=== PATIENT | female | born 1955 | race Caucasian/White ===

== ENCOUNTER 2017-08-23 12:38 | Emergency (ER) | payer OTHER ==
[2017-08-23 13:06] VITALS: BP 116/52
--- NOTE | 2017-08-23 13:19 | UC ---
Upper Extremity HPI - HPI Summary HPI Summary: Right atraumatic shoulder pain with swelling and lump over the AC joint area. It is making it hard to move her arm and shoulder. No prior fracture there. - History of Current Complaint Chief Complaint: UCUpperExtremity Stated Complaint: RIGHT SHOULDER PAIN Time Seen by Provider: 08/23/17 12:53 Hx Obtained From: Patient Onset/Duration: Lasting Days Severity Initially: Moderate Severity Currently: Moderate Pain Intensity: 1 Location Of Pain: Is Discrete @ Character: Sharp, Aching Aggravating Factor(s): Movement, Lifting, Flexion, Extension, Internal/External Rotation, Abduction Alleviating Factor(s): Rest Associated Signs And Symptoms: Positive: Swelling, Other - tenderness. - Allergies/Home Medications Allergies/Adverse Reactions: Allergies Allergy/AdvReac Type Severity Reaction Status Date / Time glipizide Allergy Pain Verified 08/23/17 13:10 metformin Allergy Difficulty Verified 08/23/17 13:10 Breathing ofloxacin Allergy Difficulty Verified 08/23/17 13:10 Breathing pioglitazone [From Actos] Allergy See Comment Verified 08/23/17 13:10 Cuohfcl-Qie-Gdj Reductase Allergy Joint Pain Verified 08/23/17 13:10 Inhibitor Sulfa (Sulfonamide Allergy GI Upset Verified 08/23/17 12:57 Antibiotics) Home Medications: Home Medications Acetaminophen [8Hr Arthritis Pain Relief] 650 mg PO Q8H 08/23/17 [History Confirmed 08/23/17] Insulin Aspart [Novolog] 10 units SQ TID 08/23/17 [History Confirmed 08/23/17] Insulin Detemir (NF) [Levemir (NF)] 12 units INJ DAILY 08/23/17 [History Confirmed 08/23/17] Levothyroxine TAB* [Synthroid 100 MCG TAB*] 100 mcg PO DAILY 08/23/17 [History Confirmed 08/23/17] Magnesium Oxide TAB* [MagOx 400 TAB*] 400 mg PO BID 08/23/17 [History Confirmed 08/23/17] Tramadol HCl 50 mg PO Q4HR 08/23/17 [History Confirmed 08/23/17] PMH/Surg Hx/FS Hx/Imm Hx Previously Healthy: No - DM. Arthritis. - Surgical History Surgical History: Yes Surgery Procedure, Year, and Place: ORIF LEFT HAND. L knee surgery, . LEFT ELBOW ORIF. RIGHT CTR - Family History Known Family History: Positive: Other - no related family history. - Social History Alcohol Use: Rare Substance Use Type: None Smoking Status (MU): Heavy Every Day Tobacco Smoker Amount Used/How Often: 1 PPD Household Exposure Type: Cigarettes Review of Systems Musculoskeletal: Arthralgia All Other Systems Reviewed And Are Negative: Yes Physical Exam Triage Information Reviewed: Yes Appearance: Well-Nourished, Pain Distress - no pain at rest. obvious pain with movements of the right arm. Vital Signs: Initial Vital Signs Temp 99.0 F 08/23/17 12:52 Pulse 75 08/23/17 12:52 Resp 17 08/23/17 12:52 BP 116/52 08/23/17 12:52 Pulse Ox 95 08/23/17 12:52 Vital Signs Reviewed: Yes Eyes: Positive: Conjunctiva Clear. Negative: Conjunctiva Inflamed ENT: Positive: Normal ENT inspection Neck: Positive: Supple, Nontender, No Lymphadenopathy Respiratory: Positive: Lungs clear, Normal breath sounds, No respiratory distress, No accessory muscle use. Negative: Respiratory distress, Decreased breath sounds, Accessory muscle use, Crackles, Rhonchi, Stridor, Wheezing, Expiration Cardiovascular: Positive: No Murmur, Pulses Normal Abdomen Description: Positive: No Organomegaly, Soft. Negative: Distended, Guarding Musculoskeletal: Positive: Other: - Right AC joint tenderness with swelling. Neurological: Positive: Alert, Muscle Tone Normal. Negative: Fatigued Psychological: Positive: Age Appropriate Behavior Skin: Negative: rashes Diagnostics - Radiology No standard instances Xray Interpretation: No Acute Changes Radiology Interpretation Completed By: ED Physician Upper Extremity Course/Dx - Course Course Of Treatment: no clinical or radiographic signs of infection or osteomyelitis. - Differential Dx/Diagnosis Provider Diagnoses: AC joint pain and arthritis. Discharge - Sign-Out/Discharge Documenting (check all that apply): Discharge/Admit/Transfer - Discharge Plan Condition: Good Disposition: HOME Patient Education Materials: Arthritis (ED) Referrals: Manuel Gruber MD [Primary Care Provider] - Barney Rangel MD [Medical Doctor] - - Billing Disposition and Condition Condition: GOOD Disposition: HOME
--- NOTE | 2017-08-23 13:46 | RAD ---
Indication: RIGHT shoulder pain for 2 days without preceding injury. Lump at the RIGHT AC joint. Comparison: April 18, 2013 LEFT forearm radiographs. Technique: Internal and external rotation AP, [place], and scapular Y views RIGHT shoulder Report: Negative for fracture. Normal acromioclavicular and glenohumeral joint alignment. Mild osteophytosis and capsular hypertrophy at the acromioclavicular joint. Subtle calcification at the AC joint space and subtle calcific tendinopathy along the bursal and articular surfaces of the supraspinatus tendon. Subtle chondrocalcinosis at the glenohumeral joint. Unremarkable soft tissue contours. IMPRESSION: 1. Negative for fracture or dislocation. 2. Mild degenerative arthropathy at the acromioclavicular joint. 3. Multifocal calcium deposition. Calcium deposition/chondrocalcinosis also evident at the wrist on the April 18, 2013 LEFT forearm exam. 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
== END 2017-08-23 13:56 | disposition home or self-care (01) ==
LOC: UCCORT 12:38
DX: M19.011 Primary osteoarthritis, right shoulder (principal); Z88.1 Allergy status to other antibiotic agents; Z88.2 Allergy status to sulfonamides; Z88.8 Allergy status to other drugs, medicaments and biological substances; E11.9 Type 2 diabetes mellitus without complications; Z79.4 Long term (current) use of insulin; F17.210 Nicotine dependence, cigarettes, uncomplicated
CPT/HCPCS: 99212; G0463